=== PATIENT | female | born 1990 | race Two or more races ===

== ENCOUNTER 2016-10-16 22:32 | Emergency (ER) | payer MEDICAID ==
[~2016-10-16] VITALS: Ht 170.2 cm; Wt 61.2 kg
[2016-10-16] MEDS ORDERED: HALOPERIDOL LACTATE 5 MG/1 ML VIAL IV ONE (22:45)
[2016-10-16] MEDS ORDERED: HALOPERIDOL LACTATE 5 MG/1 ML VIAL ONE (22:48)
[2016-10-16] MEDS ORDERED: LORAZEPAM 2 MG/1 ML VIAL ONE (22:49)
[2016-10-16] MEDS: LORAZEPAM 2 MG/1 ML VIAL IV ONE ×2 (22:50→23:50)
--- NOTE | 2016-10-16 23:00 | NUR ---
Pt biba for aloc due to heavy etoh. Per EMS pt having unintelligable responses but was combative. PD escorted pt with EMS. Pt arrived with "spit guard" on head and restrained in handcuffs. Pt not answering questions, unresponive. Grunting or moaning in response. Pt placed on monitor, NSR. Resp even and unlabored. Airway patent. No obvious trauma noted to pt upon head to toe exam. Pt seen by MD. Labs drawn and sent. UA collected and sent.
--- NOTE | 2016-10-16 23:00 | NUR ---
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
[2016-10-16 23:09] LABS: *AMPHETAMINE, URINE NEGATIVE (NEGATIVE); *BARBITURATE, URINE NEGATIVE (NEGATIVE); *CANNABINOID, URINE NEGATIVE (NEGATIVE); *COCCAINE, URINE NEGATIVE (NEGATIVE); *OPIATE, URINE NEGATIVE (NEGATIVE); *PHENCYCLIDINE SCREEN,URINE NEGATIVE (NEGATIVE)
[2016-10-17] MEDS ORDERED: IV NORMAL SALINE 1000 ML BAG IV ONE (00:30)
--- NOTE | 2016-10-17 00:30 | NUR ---
Pt resting with eyes closed, resp even and unlabored. Pt remains NSR on monitor.
--- NOTE | 2016-10-17 02:00 | NUR ---
Pt resting with eyes closed, resp even and unlabored. Fluid bolus infusing freely to gravity. No obvious signs of distress at this time.
--- NOTE | 2016-10-17 03:18 | NUR ---
Pt woke up, answering questions. Pt given water to see if able to tolerate. Family called to sweet pickle maker pt
--- NOTE | 2016-10-17 04:00 | NUR ---
Pt's family arrived to take pt home. Pt awake and answering questions. Tolerated water. Pt stable for discharge per MD. IV dc'd, catheter intact. Drsg applied. No problems noted to site. Pt and family given ACI. Both verbalized understanding of dc instructions. Pt ambulated out of er with steady gait and regional driver home.
[2016-10-17 04:11] VITALS: BP 96/54
== END 2016-10-17 04:12 | disposition home or self-care (01) ==
LOC: ER 22:33
DX: F10.129 Alcohol abuse with intoxication, unspecified (principal)
CPT/HCPCS: 36415; 51702; 80307; 96361; 96374; 96375; 99285; A4663; G0480; J1630; J2060; J7030 ×2; C1758